=== PATIENT | female | born 1955 | race Caucasian/White ===

== ENCOUNTER 2016-09-03 12:19 | Emergency (ER) | payer OTHER ==
--- OUTSIDE RECORDS SUMMARY | 2016-09-03 13:12 | XMS REPORT | Continuity of Care Document ---
:1955 Author Organization [facility] ([facility]) Address [address] [place] [address] Phone [phone] Care Team Providers Name Role Phone Emely Raya Shraddha Primary Care Provider [phone] Source Comments This disclosure is being made pursuant to the Care Everywhere program, applicable federal and state laws, and may not contain all informaitonavailable regarding this patient.[facility] ([facility]) Active Allergies and Adverse Reactions Allergen Noted Date Severity Reactions Comments [place] Pruritus,Angioedema Sulfadoxine Urticaria (Hives),Nausea & Vomiting Current Medications Prescription Sig. Disp. Refills Start Date End Date Status hydrochlorothiazide 50 mg take 50 mg by Active tablet mouth daily. atenolol 50 mg tablet take 50 mg by Active mouth daily. potassium chloride 10 mEq take 20 mEq by Active tablet mouth daily. MULTIVITAMINS (MULTIPLE take 1 Tab by Active VITAMIN PO) mouth daily. CALCIUM CARBONATE/VITAMIN take 1 Tab by Active D3 (CALCIUM 600 + D PO) mouth daily. ibuprofen 200 mg tablet take 200 mg by Active mouth every 6 hours as needed for Pain. diphenhydrAMINE 25 mg take 25 mg by Active capsule mouth every 6 hours as needed. levofloxacin 0.5 % Instructions 1 Bottle 0 08/02/2012 Active ophthalmic solution provided on post-op patient instruction sheet Indications: postop prednisoLONE acetate Instructions 5 mL 0 08/02/2012 Active (PRED FORTE) 1 % provided on ophthalmic suspension post-op patient instruction sheet Indications: postop metFORMIN 500 mg tablet Take 1 Tab by 60 Tab 6 09/02/2012 Active mouth 2 times daily. Indications: TYPE 2 DIABETES MELLITUS Active Problems Problem Noted Date Diabetes mellitus 09/02/2012 Cutaneous skin tags 09/02/2012 Pseudophakia 06/24/2012 Tobacco use 05/26/2012 Knee pain 05/26/2012 Joint pain 05/26/2012 Cataract 05/26/2012 Calculus of kidney 08/10/2008 Essential hypertension, benign 08/02/2008 Resolved Problems Problem Noted Date Resolved Date Abdominal pain, right upper quadrant 07/18/2008 05/26/2012 Most Recent Encounters Date Type Specialty Providers Description 06/17/2016 Lab Requisition Pathology [facility], [facility] Dx: Neoplasm of uncertain behavior of skin Immunizations Name Dates Previously Given Next Due Influenza, PF 05/26/2012 Tdap 05/26/2012 Social History Tobacco Use Types Packs/Day Years Used Date Current Every Day Smoker Cigarettes 1 20 Smokeless Tobacco: Never Used Tobacco Cessation:Counseling Given: Yes Comments: Alcohol Use Drinks/Week oz/Week Comments Yes 0 Glasses of wine Rarely 0 Cans of beer 0 Standard drinks or equivalent Last Filed Vital Signs Vital Sign Reading Time Taken Blood Pressure 139/72 11/18/2012 9:25 AM CDT Pulse 68 11/18/2012 9:25 AM CDT Temperature 36.1 C (97 F) 11/18/2012 9:25 AM CDT Respiratory Rate 16 08/05/2012 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 Height 1.702 m (5' 7") 09/02/2012 10:04 AM CDT Weight 105.96 kg (233 lb 9.6 oz) 11/18/2012 9:25 AM CDT Body Mass Index 36.58 11/18/2012 9:25 AM CDT Oxygen Saturation 99% 08/05/2012 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 Plan of Care Health Maintenance Due Date Last Done Comments HCV Screening 1955 Hepatitis B Vaccine (1 of 3 - Primary 1955 Series) MMR Vaccine 12/21/1973 Pneumococcal Vaccine (1 of 1 - PPSV23) 12/21/1974 Colonoscopy 12/21/2005 FOBT Colon Cancer Screening 12/21/2005 Sigmoidoscopy Colon Cancer Screening 12/21/2005 DIABETIC: Foot Exam 09/02/2012 DIABETIC: Retinal Eye Exam 09/02/2012 DIABETIC: Hemoglobin A1C 03/05/2013 09/02/2012, 05/26/2012 DIABETIC: Cholesterol 05/26/2013 05/26/2012 Diabetic: Hdl 05/26/2013 05/26/2012 Diabetic: Ldl 05/26/2013 05/26/2012 DIABETIC: Microalbumin 05/26/2013 05/26/2012 DIABETIC: Triglycerides 05/26/2013 05/26/2012 Mammogram 11/18/2013 11/18/2012 Cervical Cancer Screening 09/03/2015 09/02/2012 Zoster Vaccine 2015 Influenza Vaccine: Seasonal (#1) 01/06/2016 05/26/2012 Td Vaccine 05/26/2022 05/26/2012 Tdap Vaccine Completed 05/26/2012 Results from Last 3 Months DERMATOPATHOLOGY EXAM (06/15/2016 8:54 AM) Component Value Range Case Report Surgical Pathology Case: [id number] Authorizing Provider:Lab [facility], [facility] Collected: 06/15/2016 08:54 AM Pathologist: Vickie Arshad MD Received:06/17/2016 08:54 AM Specimen:Skin, other, specify, L LABIA MAJORA Diagnosis Skin, left labia majora, shave removal: Pedunculated seborrheic keratosis. I have personally reviewed this case and edited the report as necessary. Clinical Information Tissue source/site: Shave-L labia majora. Pertinent clinical history and findings: 1.5 cm pedunculated fleshy, warty nodule. Clinical differential diagnosis: Soft fibroma vs filiform wart. Gross Description A.Received in formalin, in a container labeled Amira Melo, date of , and "L LABIA MAJORA", is a 2.5 x 2.0 x 1.7 cm degroot, verrucoid, segment of skin.The resection margin is inked blue. The specimen is serially sectioned into six levels.The specimen is submitted entirely in A1-A3. BNS/rls Microscopic Description Sections show a shave biopsy of skin that demonstrates a papillomatous lesion demonstrating epidermal hyperplasia with associated horned cysts, surrounding fibrovascular cores composed of loose collagen with increased blood vessels. Performed by: Khurram Mendoza M.D. R2 Specimen Skin - Skin, other, specify
--- OUTSIDE RECORDS SUMMARY | 2016-09-03 13:12 | XMS REPORT | Continuity of Care Document ---
:1955 Author Organization [facility] [place] [address] Care Team Providers Name Role Phone Thad العلي Primary Care Provider [phone] Source Comments This disclosure is being made pursuant to the [facility] program and maynot contain all information available regarding this patient.[facility] Active Allergies and Adverse Reactions Not on File Current Medications Be aware that medications may not be up to date as of this document. Alwaysverify current medications with the patient. Not on file Active Problems Not on file Social History Tobacco Use Types Packs/Day Years Used Date Never Assessed Plan of Care Health Maintenance Due Date Last Done Comments Retired-Pertussis Vaccine Adult 12/21/1974 Retired-Tetanus Vaccine Adult 12/21/1974 Pap Smear 12/21/1976 Mammogram 1995 Colonoscopy 12/21/2005 Well Adult Visit 12/21/2005 Retired-INFLUENZA VACCINE 02/05/2015 Results from Last 3 Months Not on file
[2016-09-03] MEDS ORDERED: NORMAL SALINE 1,000 ML in NORMAL SALINE 1,000 ML IV ONE (13:16)
[2016-09-03] MEDS ORDERED: ONDANSETRON HCL/PF 2 MG/ML VIAL IV ONE (13:16)
--- NOTE | 2016-09-03 13:21 | ERNOTE ---
Medical Problem HPI - General Chief Complaint: Nausea/Vomiting Time Seen by Provider: 09/03/16 12:59 Source: patient Exam Limitations: no limitations - Immun/Allergies/Home Medications Immunizations: IMMUNIZATION HX Immunizations Up to Date Yes History of Influenza Vaccine Yes Hx Pneumococcal Vaccination Yes Allergies/Adverse Reactions: Allergies diazepam [From Valium] Adverse Reaction (Verified 09/03/16 12:30) Sulfa (Sulfonamide Antibiotics) Adverse Reaction (Verified 09/03/16 12:30) Home Medications: HOME MEDICATIONS Atenolol [Tenormin] 50 mg PO DAILY 09/03/14 [Last Taken Unknown] Hydrochlorothiazide 50 mg PO DAILY 09/03/14 [Last Taken Unknown] metFORMIN HCL [Glucophage Xr] 500 mg PO BID 09/03/14 [Last Taken Unknown] Ondansetron [Zofran Odt] 4 mg PO Q6H PRN #20 tab 09/03/16 [Last Taken Unknown] Potassium 99 mg PO BID 09/03/16 [Last Taken Unknown] traMADol HCL [Ultram] 50 mg PO QID PRN #20 tablet 09/03/16 [Last Taken Unknown] - History of Present History Narrative: She complains of nausea without vomiting was having some cold sweats earlier today went to work and just didn't feel right felt like she is coming down possibly with the flu. Timing: constant Severity: moderate Review of Systems - Review of Systems Constitutional: Present: See HPI, diaphoresis EYE: Present: no symptoms reported ENT: Present: no symptoms reported Respiratory: Present: no symptoms reported Cardiology: Present: no symptoms reported Gastrointestinal/Abdominal: Present: nausea Genitourinary: Present: no symptoms reported Musculoskeletal: Present: no symptoms reported Skin: Present: no symptoms reported Neurological: Present: no symptoms reported Endocrine: Present: no symptoms reported Hematologic/Lymphatic: Present: no symptoms reported Psych: Present: no symptoms reported - Patient's Past Medical History Patient History - Medical: Diabetes Type 2 Patient History - Cardiac/Respiratory: Hypertension Patient History - Cancer: No Hx of Cancer Patient History - Surgical Procedures: Cataracts, Cholecystectomy Patient History - Other: None LMP (females 10-50): Menopausal - Social History Living Situations: spouse Abuse History: No History of abuse Psych History: No pertinent hx Smoking Status: Current every day smoker Alcohol Use: none - Immunizations Immunizations Up to Date: Yes Hx Pneumococcal Vaccination: Yes History of Influenza Vaccine: Yes Physical Exam - Physical Exam General Appearance: Present: wd/wn, alert, no apparent distress Eye Exam: Normal inspection: bilateral, PERRL: bilateral Ears, Nose, Throat: Present: normal ENT inspection, other - cobblestone pharynx Neck: Present: normal inspection, nontender Respiratory: Present: no respiratory distress, normal breath sounds, no accessory muscle use, chest nontender, lungs clear Cardiovascular/Chest: Present: regular rate, rhythm, no murmur, normal peripheral pulses Gastrointestinal/Abdominal: Present: normal bowel sounds, nontender, nondistended, soft, no organomegaly Rectal Exam: Present: deferred Back Exam: Present: normal inspection, normal range of motion Extremity Exam: Present: normal inspection, non-tender, no edema, normal range of motion Neurological Exam: Present: alert, oriented, normal mood/affect Skin Exam: Present: normal color, warm/dry Lymphatic Exam: Present: no adenopathy ED Progress - Results and Orders Patient's Lab Results:: I have reviewed the patient's lab results. - Vital Signs Patient's Vital Signs:: I have reviewed the patient's vital signs. Vital Signs: Vital Signs 09/03/16 12:23 Temperature 36.7 C Pulse Rate 65 Respiratory 14 Rate Blood Pressure 151/99 - X-Ray X-Ray #1 X-Ray: abdomen - Progress/Reassessment Chief Complaint: Nausea/Vomiting Progress:: Improved Plan - Plan Plan: Abdominal series x-ray patient was noted to have some thickening of the colon wall from the area of the splenic flexure down to the sigmoid colon. Patient has had to put several point is with Dr. Yung tovar for colonoscopy because the weather. I stressed upon her the need now to have this colonoscopy done and she agrees to call Dr. Yung tovar for appointment. Departure - Departure Clinical Impression: Gastroenteritis, Colitis Disposition: Home self-care Condition: Good Instructions: Viral Gastroenteritis, Adult, [id number], Colitis Referrals: Shraddha Wheeler FNP [Primary Care Provider] - Prescriptions: Ondansetron [Zofran Odt] 4 mg PO Q6H PRN #20 tab PRN Reason: Nausea And Vomiting traMADol HCL [Ultram] 50 mg PO QID PRN #20 tablet PRN Reason: Moderate Pain
[2016-09-03 13:23] LABS: Urine Bilirubin Negative (NEGATIVE); Urine Ketone Negative (NEGATIVE); Urine Nitrite Negative (NEGATIVE); Urine Protein Negative (NEGATIVE); Urine Specific Gravity <=1.005 SP.GR. (1.005-1.010); Urine Urobilinogen Normal (NORMAL)
[2016-09-03] MEDS ORDERED: ONDANSETRON HCL/PF 2 MG/ML VIAL ONE (13:28)
[2016-09-03 13:32] LABS: Urine Appearance Clear; Urine Bacteria TRACE; Urine Blood 10 /ul (NEGATIVE); Urine Color Yellow; Urine RBC TRACE /hpf (0-5); Urine WBC None Seen /hpf (0-5)
[2016-09-03 13:35] LABS: Hematocrit 49.1 % (37.0-47.0); Hemoglobin 16.1 gm/dL (12.5-16.0); Mean Cell Volume 93.7 fl (78-100); Mean Corpuscular Hemoglobin 30.7 pg (27-31); Mean Corpuscular Hgb Conc 32.8 g/dl (32-36); Mean Platelet Volume 12.3 fl (6.0-9.5); Neutrophil # 5.7 K/mm3 (1.3-6.0); Platelet Count 177 K/mm3 (150-450); Red Blood Count 5.24 M/mm3 (4.2-5.4); Red Cell Distribution Width 13.7 % (11.5-14.0); White Blood Count 9.1 K/mm3 (4.0-10.5)
[2016-09-03 13:54] LABS: ALT 26 U/L (19-67); AST 19 U/L (0-48); Alkaline Phosphatase * 73 U/L (50-170); Anion Gap 14.1 mmol/L (6.8-13.8); BUN/Creatinine Ratio 28.6 (9.0-21.6); Bilirubin, Total 0.3 mg/dL (0.0-1.1); Blood Urea Nitrogen 20 mg/dL (3-23); Ca. Corrected For Albumin 9.5 mg/dL (8.4-10.2); Calcium * 9.8 mg/dL (7.9-10.9); Carbon Dioxide 27.9 mmol/L (24-32.6); Chloride 102 mmol/L (97-106); Glucose * 100 mg/dL (70-110); Magnesium 1.8 mg/dL (1.2-2.8); Sodium 140 mmol/L (132-142); Total Protein 8.3 gm/dL (6.2-8.2); Troponin I Less than 0.017 ng/ml (0.00-0.10)
[2016-09-03 15:46] VITALS: BP 141/64
== END 2016-09-03 16:30 | disposition home or self-care (01) ==
LOC: ER 12:19
DX: K52.9 Noninfective gastroenteritis and colitis, unspecified (principal); Z72.0 Tobacco use; E11.9 Type 2 diabetes mellitus without complications; I10 Essential (primary) hypertension

== ENCOUNTER 2016-09-17 08:14 | Emergency (ER) | payer OTHER ==
--- NOTE | 2016-09-17 08:42 | ERNOTE ---
Medical Problem HPI - Narrative Date of Service: 09/17/16 - General Chief Complaint: General Assessment Time Seen by Provider: 09/17/16 08:38 Source: patient Exam Limitations: no limitations - Immun/Allergies/Home Medications Immunizations: IMMUNIZATION HX Immunizations Up to Date Yes History of Influenza Vaccine No Hx Pneumococcal Vaccination No Allergies/Adverse Reactions: Allergies diazepam [From Valium] Adverse Reaction (Verified 09/17/16 08:23) Sulfa (Sulfonamide Antibiotics) Adverse Reaction (Verified 09/17/16 08:23) Home Medications: HOME MEDICATIONS Atenolol [Tenormin] 50 mg PO DAILY 09/03/14 [Last Taken Unknown] Hydrochlorothiazide 50 mg PO DAILY 09/03/14 [Last Taken Unknown] metFORMIN HCL [Glucophage Xr] 500 mg PO BID 09/03/14 [Last Taken Unknown] Ondansetron [Zofran Odt] 4 mg PO Q6H PRN #20 tab 09/03/16 [Last Taken Unknown] Potassium 99 mg PO BID 09/03/16 [Last Taken Unknown] traMADol HCL [Ultram] 50 mg PO QID PRN #20 tablet 09/03/16 [Last Taken Unknown] - History of Present History Narrative: WORKS AT A BAR , 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 EVER SINCE 1999 LAST NIGHT SHE HAS HAD PAIN IN LEFT UPPER BACK, MEDIAL TO HER LEFT SCAPULA, THAT CAUSES SORENESS WHEN SHE TAKES A DEEP BREATH OR WHEN THAT AREA IS PALPATED. SHES SAYS IT SOMETIMES HURTS DOWN HER LEFT SIDE. SHE DENIES KNOWN TRAUMA. NO HX OF HEART OR LUNG DIS. SHE IS A SMOKER. SHE TRIED SOME ICE TO THE AREA LAST NIGHT. NO SOB. NO RASH. SHE WONDERS IF SHE COULD HAVE PLEURISY. Timing: constant Severity: moderate Review of Systems - Review of Systems Constitutional: Present: See HPI EYE: Present: no symptoms reported ENT: Present: no symptoms reported Respiratory: Present: no symptoms reported Cardiology: Present: no symptoms reported Gastrointestinal/Abdominal: Present: no symptoms reported Genitourinary: Present: no symptoms reported Musculoskeletal: Present: See HPI, back pain Skin: Present: no symptoms reported Neurological: Present: no symptoms reported Endocrine: Present: no symptoms reported Hematologic/Lymphatic: Present: no symptoms reported Psych: Present: no symptoms reported All Other Systems: All systems neg except as marked - Patient's Past Medical History Patient History - Medical: Diabetes Type 2 Patient History - Cardiac/Respiratory: Hypertension Patient History - Cancer: No Hx of Cancer Patient History - Surgical Procedures: Cataracts, Cholecystectomy, Urology - RIGHT NEPHRECTOMY FOR STAGHORN CALCULUS. Patient History - Other: None LMP (females 10-50): Menopausal - Social History Living Situations: home Abuse History: No History of abuse Psych History: No pertinent hx Smoking Status: Current every day smoker Have you smoked in the past 12 months: Yes Alcohol Use: occasionally Drug Use: none - Immunizations Immunizations Up to Date: Yes Hx Pneumococcal Vaccination: No History of Influenza Vaccine: No Physical Exam - Physical Exam General Appearance: Present: wd/wn, alert, mild distress Respiratory: Present: no respiratory distress, normal breath sounds, no accessory muscle use, chest nontender, lungs clear Cardiovascular/Chest: Present: regular rate, rhythm, no murmur, normal peripheral pulses Peripheral Pulses: N=norm/S=strong/W=weak/B=bound/A=absent: Radial (R): Normal, Radial (L): Normal Gastrointestinal/Abdominal: Present: normal bowel sounds, nontender, nondistended, soft Back Exam: Present: normal inspection, normal range of motion, other - PT WITH TENDERNESS TO MEDIAL ASPECT OF LEFT SCAPULA. NO SWELLING OR ABRASION OR RASH. PT SAYS THIS REPLICATES HER CHIEF COMPLAINT. IT IS NOT REPLICATED BY ROM OF HER LEFT SHOULDER. Extremity Exam: Present: normal inspection, normal range of motion Neurological Exam: Present: alert, oriented Skin Exam: Present: normal color, warm/dry ED Progress - Results and Orders Patient's Lab Results:: I have reviewed the patient's lab results. Results and Orders: WBC IS 12K WITH 80 SEGS. REST OF LABS ARE NORMAL WITH TROP = < 0.017 - Vital Signs Vital Signs: Vital Signs 09/17/16 08:19 Temperature 37.2 C Pulse Rate 78 Respiratory 16 Rate Blood Pressure 172/87 O2 Sat by Pulse 95 Oximetry - EKG EKG: NSR EKG read: Interp. by me - X-Ray X-Ray #1 X-Ray: chest - LEFT LOWER LOBE ATELECTASIS OR MAY BE INFILTRATE. Interpretation: Reviewed by me - Progress/Reassessment Chief Complaint: General Assessment Departure - Departure Clinical Impression: Upper back pain on left side, Infiltrate of lung present on imaging of chest Disposition: Home Follow Up Needed Condition: Good Instructions: Thoracic Strain, [id number], Pleurisy, [id number] Additional Instructions: YOUR EKG AND TROPONIN TEST TO LOOK FOR SIGNS OF HEART MUSCLE DAMAGE ARE NEGATIVE. THE WHITE BLOOD COUNT IS SLIGHTLY ELEVATED AT 12 THOUSAND. YOUR CHEST XRAY DID SHOW AN INFILTRATE OR AREA OF ATELECTASIS TO THE LEFT LOWER LUNG FIELD WHICH COULD BE OLD BUT I DID NOT SEE AN OLD CHEST TO COMPARE WITH, OR COULD BE FROM NEW INFECTION AND MAY FIT IN WITH YOUR FEELLING OF IT BEING PLEURISY. SINCE YOU ARE DUE TO START YOUR DOXYCYLINE 100 MG TWICE A DAY FOR 14 DAYS I SUGGEST YOU BEGIN THAT NOW. USE IBUPROFEN 600 MG EVERY 8 HOURS FOR PAIN AND TRY HEAT TO THE SORE AREA. RECHECK WITH YOUR DOCTOR IN 2-3 WEEKS. THEY MAY WANT A REPEAT CHEST FILM. TRY TO STOP SMOKING. Referrals: Shraddha Wheeler FNP [Primary Care Provider] -
--- OUTSIDE RECORDS SUMMARY | 2016-09-17 08:45 | XMS REPORT | Continuity of Care Document ---
:1955 Author Organization [facility] [place] [address] Care Team Providers Name Role Phone Thad العلي Primary Care Provider [phone] Source Comments This disclosure is being made pursuant to the [facility] program and maynot contain all information available regarding this patient.[facility] Active Allergies and Adverse Reactions Not on [...]
--- OUTSIDE RECORDS SUMMARY | 2016-09-17 08:45 | XMS REPORT | Continuity of Care Document ---
:1955 Author Organization [facility] ([facility]) Address [address] [place] [address] Phone [phone] Care Team Providers Name Role Phone Emely Raya Shraddha Primary Care Provider [phone] Source Comments This disclosure is being made pursuant to the Care Everywhere program, applicable federal and state laws, and may not contain all informaitonavailable regarding this patient.[facility] ([facility]) Active Allergies and Adverse Reactions Allergen Noted Date Severity Reactions Comments [place] Pruritus,Angioedema Sulfadoxine Urticaria (Hives),Nausea & Vomiting Current [...] Abdominal pain, right upper quadrant 07/18/2008 05/26/2012 Immunizations Name Dates Previously Given Next Due [...] CDT Respiratory Rate 16 08/05/2012 2:00 PM [employer]OL Height 1.702 m (5' 7") 09/02/2012 10:04 AM CDT Weight 105.96 kg (233 lb 9.6 oz) 11/18/2012 9:25 AM CDT Body Mass Index 36.58 11/18/2012 9:25 AM CDT Oxygen Saturation 99% 08/05/2012 2:00 PM [employer] Plan of Care Health Maintenance Due Date [...] Completed 05/26/2012 Results from Last 3 Months Not on file
[2016-09-17 08:47] LABS: Hematocrit 44.3 % (37.0-47.0); Hemoglobin 14.9 gm/dL (12.5-16.0); Mean Cell Volume 92.1 fl (78-100); Mean Corpuscular Hgb Conc 33.6 g/dl (32-36); Mean Platelet Volume 12.4 fl (6.0-9.5); Neutrophil # 9.6 K/mm3 (1.3-6.0); Neutrophil % 79.6 % (42-75.0); Platelet Count 158 K/mm3 (150-450); Red Blood Count 4.81 M/mm3 (4.2-5.4); Red Cell Distribution Width 13.8 % (11.5-14.0)
[2016-09-17 08:59] LABS: INR 0.96 INR (0.90-1.10)
[2016-09-17 09:16] LABS: ALT 22 U/L (19-67); AST 16 U/L (0-48); Albumin * 3.6 gm/dl (3.4-5.0); Alkaline Phosphatase * 77 U/L (50-170); BUN/Creatinine Ratio 21.1 (9.0-21.6); Bilirubin, Total 0.4 mg/dL (0.0-1.1); Blood Urea Nitrogen 15 mg/dL (3-23); Ca. Corrected For Albumin 9.2 mg/dL (8.4-10.2); Calcium * 9.2 mg/dL (7.9-10.9); Carbon Dioxide 27.9 mmol/L (24-32.6); Chloride 101 mmol/L (97-106); Glucose * 140 mg/dL (70-110); Potassium 3.9 mmol/L (3.4-4.6); Sodium 138 mmol/L (132-142); Total Protein 7.8 gm/dL (6.2-8.2); Troponin I Less than 0.017 ng/ml (0.00-0.10)
[2016-09-17 11:02] VITALS: BP 142/65
== END 2016-09-17 11:02 | disposition home or self-care (01) ==
LOC: ER 08:14
DX: M54.6 Pain in thoracic spine (principal); R91.8 Other nonspecific abnormal finding of lung field; F17.200 Nicotine dependence, unspecified, uncomplicated; R07.89 Other chest pain

== ENCOUNTER 2016-12-07 06:43 | Day surgery (SDC) | payer OTHER ==
[~2016-12-07 06:43] MED LIST: RINGERS SOLUTION,LACTATED 1,000 ML IV PRN
[2016-12-07] MEDS ORDERED: RINGERS SOLUTION,LACTATED 1,000 ML IV ONE (07:35)
[2016-12-07] MEDS ORDERED: RINGERS SOLUTION,LACTATED 1,000 ML IV PRN (08:19)
[2016-12-07 09:09] VITALS: BP 110/50
--- NOTE | 2016-12-07 13:19 | OR ---
Operative Report - Dictated Report Narrative: OPERATIVE REPORT DATE OF OPERATION: 12/07/2016 PREOPERATIVE DIAGNOSIS: No prior dedicated colon studies POSTOPERATIVE DIAGNOSIS: Sigmoid diverticulosis OPERATION: Colonoscopy SURGEON: Daniel Barragan MD ANESTHESIA: MAC Eagle Demarco CRNA INDICATIONS FOR PROCEDURE: The patient is a 60-year-old female referred for initial colon screening by A Summer SHAVER. The patient has had no previous dedicated colon studies. There is no family history of colon cancer. The patient is currently asymptomatic FINDINGS: Moderate sigmoid diverticulosis otherwise normal colonoscopy to the cecum NARRATIVE OF PROCEDURE: The patient was identified in the holding area, and prior to the administration of anesthetic, a multidisciplinary timeout was observed. With the patient in the left lateral position and after the administration of intravenous sedation, the perineum was inspected. There was no evidence of pilonidal disease or skin breakdown. The external appearance of the anus was normal. Sphincter tone was good. The flexible fiberoptic colonoscope was inserted into the rectum which was insufflated with air. The rectal mucosa and submucosal vascular pattern appeared normal, the prep was seen to be complete. The scope was advanced through the sigmoid colon, which contained numerous large not impacted noninflamed diverticular openings. The scope was advanced up the descending colon, and around the splenic flexure where the triangular haustral architecture of the transverse colon was seen. The scope was advanced across the transverse colon, around the hepatic flexure to the cecum, where the confluence of tenia and the ileocecal valve were identified. The mucosa at this level appeared normal. The scope was then slowly withdrawn in a circular fashion so that all aspects of colonic mucosa were inspected. The colon was relatively normal in course and caliber. The haustral architecture appeared well preserved throughout with no evidence of external compression. The mucosa and submucosal vascular pattern appeared normal, specifically there was no gross evidence to suggest colitis or inflammatory bowel disease and no AV malformations were seen. The diverticulosis was moderate in degree and confined primarily to the sigmoid colon. No polyps were encountered. The scope was gradually withdrawn to the level of the rectum. As much insufflated air as possible was removed. The scope was withdrawn from the patient and the procedure terminated. The patient tolerated the anesthetic and procedure well without complication and was transferred back to the ambulatory surgery area awake and in stable condition. The patient remained stable throughout a period of postoperative observation. She denied abdominal discomfort, was able to tolerate by mouth intake, and was up without assistance. I shared the operative findings with the patient and she was given copies of the photographs which appear in the medical record. She was discharged home with instructions not to engage in hazardous activity today , but may resume normal activity tomorrow, and advance diet as tolerated. She is to continue those medications as listed in the history and physical exam. RECOMMENDATION: A pamphlet on diverticular disease was reviewed with her and given to her and a higher fiber diet and trial of Benefiber was suggested. Colon surveillance in 10 years depending upon findings and symptoms Reviewed and electronically signed
== END 2016-12-07 06:44 | disposition home or self-care (01) ==
LOC: AMB 06:43
PROVIDERS: ATTEND Surgery
PROC: 0DJD8ZZ Inspection of Lower Intestinal Tract, Via Natural or Artificial Opening Endoscopic (ICD-10-PCS; principal; 2016-12-07 07:40)
DX: Z12.11 Encounter for screening for malignant neoplasm of colon (principal); K57.30 Diverticulosis of large intestine without perforation or abscess without bleeding; E11.9 Type 2 diabetes mellitus without complications; I10 Essential (primary) hypertension; F17.200 Nicotine dependence, unspecified, uncomplicated; Z68.34 Body mass index [BMI] 34.0-34.9, adult

== ENCOUNTER 2017-02-22 12:01 | Emergency (ER) | payer OTHER ==
[2017-02-22 12:16] VITALS: BP 151/93
[2017-02-22] MEDS ORDERED: DIPHTH,PERTUSS(ACELL),TET VAC 0.5 ML VIAL IM ONE ×2 (12:25→12:26)
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
== END 2017-02-22 12:41 | disposition home or self-care (01) ==
LOC: ER 12:01
PROC: 0HQ0XZZ Repair Scalp Skin, External Approach (ICD-10-PCS; principal; 2017-02-22)
DX: E11.9 Type 2 diabetes mellitus without complications (principal); S09.90XA Unspecified injury of head, initial encounter; S01.01XA Laceration without foreign body of scalp, initial encounter; I10 Essential (primary) hypertension; F17.200 Nicotine dependence, unspecified, uncomplicated; W10.9XXA Fall (on) (from) unspecified stairs and steps, initial encounter; Y92.009 Unspecified place in unspecified non-institutional (private) residence as the place of occurrence of the external cause; Z23 Encounter for immunization